=== PATIENT | male | born 1955 | race African-American/Black ===

== ENCOUNTER 2016-07-01 16:26 | Emergency (ER) | payer OTHER ==
--- NOTE | 2016-07-01 16:47 | PDOC ---
History of Present Illness - General History Source: Patient, Family (, [id number]) Exam Limitations: No Limitations - History of Present Illness Initial Comments: 07/01/16 17:21 The patient is a 61 year old male, with no significant past medical history, who presents to the emergency department sent from an urgent care for evaluation secondary to abnormal lab work. Last week, the patient reports feeling weak with chills and a couple episodes of diarrhea. At the request of family members, the patient finally visited an urgent care for those symptoms earlier today. While at the urgent care, the patient had a chest x-ray, lab work and a flu swab done. The chest x-ray revealed no acute findings and the flu swab was negative but the lab work revealed an elevated potassium of 5.9. The urgent care advised the patient to visit an ED for further evaluation. Currently in the ED, the patient states that the chills and diarrhea had resolved but he reports feeling slightly weak and dehydrated. The patient denies chest pain or shortness of breath. The patient denies fever, chills, headache, cough, nausea, vomiting, diarrhea or abdominal pain. The patients and [id number] are at the bedside. Allergies: None reported. Past Surgical History: Back Surgery, Achilles Tendon Repair. Social History: Non smoker. Denies alcohol or drug use. <Karmen Munoz - Last Filed: 07/01/16 17:21> - General History Source: Patient, Old Records Exam Limitations: No Limitations <Ernestina Minor - Last Filed: 07/01/16 18:26> - General Chief Complaint: Revisit, Lab Variance Stated Complaint: HIGH POTASSIUM 5.9 Time Seen by Provider: 07/01/16 16:30 Past History <Karmen Munoz - Last Filed: 07/01/16 17:21> - Psycho/Social/Smoking Cessation Hx Anxiety: No Suicidal Ideation: No Smoking Status: No Smoking History: Never smoked Have you smoked in the past 12 months: No Number of Cigarettes Smoked Daily: 0 Hx Alcohol Use: No Drug/Substance Use Hx: No Substance Use Type: None <Ernestina Minor - Last Filed: 07/01/16 18:26> - Past Medical History Allergies/Adverse Reactions: Allergies Allergy/AdvReac Type Severity Reaction Status Date / Time No Known Allergies Allergy Verified 07/01/16 16:29 Home Medications: Ambulatory Orders NK [No Known Home Medication] 07/01/16 Review of Systems - Review of Systems Able to Perform ROS?: Yes Comments:: 07/01/16 17:21 GENERAL/CONSTITUTIONAL: +Weakness. No fever or chills. HEAD, EYES, EARS, NOSE AND THROAT: No change in vision. No ear pain or discharge. No sore throat. CARDIOVASCULAR: No chest pain or shortness of breath. RESPIRATORY: No cough, wheezing, or hemoptysis. GASTROINTESTINAL: No nausea, vomiting, diarrhea or constipation. GENITOURINARY: No dysuria, frequency, or change in urination. MUSCULOSKELETAL: No joint or muscle swelling or pain. No neck or back pain. SKIN: No rash. NEUROLOGIC: No headache, vertigo, loss of consciousness, or change in strength/ sensation. ENDOCRINE: No increased thirst. No abnormal weight change. HEMATOLOGIC/LYMPHATIC: No anemia, easy bleeding, or history of blood clots. ALLERGIC/IMMUNOLOGIC: No hives or skin allergy. <Karmen Munoz - Last Filed: 07/01/16 17:21> *Physical Exam - Vital Signs Last Vital Signs Temp Pulse Resp BP Pulse Ox 98.9 F 67 16 141/89 99 07/01/16 16:29 07/01/16 16:29 07/01/16 16:29 07/01/16 16:29 07/01/16 16:29 - Physical Exam Comments: 07/01/16 16:51 GENERAL: Awake, alert, and fully oriented, in no acute distress. HEAD: No signs of trauma. EYES: PERRLA, EOMI, sclera anicteric, conjunctiva clear. ENT: Auricles normal inspection, hearing grossly normal, nares patent, oropharynx clear without exudates. Moist mucosa. NECK: Normal ROM, supple, no lymphadenopathy, JVD, or masses. LUNGS: Breath sounds equal, clear to auscultation bilaterally. No wheezes, and no crackles. HEART: Regular rate and rhythm, normal S1 and S2, no murmurs, rubs or gallops. ABDOMEN: Soft, nontender, normoactive bowel sounds. No guarding, no rebound. No masses. EXTREMITIES: Normal range of motion, no edema. No clubbing or cyanosis. No cords , erythema, or tenderness. NEUROLOGICAL: Cranial nerves II through XII intact. Normal speech, normal gait. SKIN: Warm, dry, normal turgor, no rashes or lesions noted. <Karmen Munoz - Last Filed: 07/01/16 17:21> ED Treatment Course - LABORATORY CBC & Chemistry Diagram: 07/01/16 17:20 07/01/16 17:20 <Ernestina Minor - Last Filed: 07/01/16 18:26> Medical Decision Making - Medical Decision Making 07/01/16 16:48 61-year-old male with no significant past medical history refer to the emergency department from urgent care for evaluation of elevated potassium of 5.9; however the patient has had one week history of chills and fever at home. Differential diagnosis includes but is not limited to: Acute kidney injury, hyperkalemia, dehydration, electrolyte abnormality, toxic/metabolic derangement. Plan: 1. Repeat labs and EKG 2. IV fluids for hydration 3. Urine analysis 4. Will not repeat the chest x-ray as it was negative at urgent care. Also influenza swab at urgent care was negative so that will not be repeated either. 5. Observe and reevaluate 07/01/16 18:23 Addendum: The labs were reviewed and are noted in the EMR. EKG is negative for acute ST segment changes or any changes consistent with hyperkalemia. There is only a first-degree AV block. The repeat labs show a potassium of 5 and a creatinine of 1.4. The patient is feeling improved. I will not do any interventions for the potassium of 5.0 as this is within the normal range. I've advised the patient to follow-up with his primary care physician within one week and to cut down on the amount of are and shoes that he drinks. I've also advised the patient to return to the emergency department if his symptoms persist, worsen, or new symptoms arise. <Ernestina Minor - Last Filed: 07/01/16 18:26> *DC/Admit/Observation/Transfer - Attestations Scribe Attestion: 07/01/16 16:50 Documentation prepared by Karmen Munoz, acting as senior medical director for Ernestina Minor MD. <Karmen Munoz - Last Filed: 07/01/16 17:21> - Discharge Dispostion Admit: No - Attestations Physician Attestion: 07/01/16 16:50 I, Dr. Ernestina Minor, attest that the scribes documentation that appears above has been prepared under my direction and personally reviewed by me in its entirety. I confirmed that the note above accurately reflects all work, treatment, procedures, and medical decision-making performed by me. <Ernestina Minor - Last Filed: 07/01/16 18:26> Diagnosis at time of Disposition: Dehydration, Viral infection - Discharge Dispostion Disposition: HOME Condition at time of disposition: Stable - Patient Instructions Printed Discharge Instructions: DI for Viral Syndrome Additional Instructions: You likely have a viral syndrome that causes you to be dehydrated. Your potassium level was 5.0 in the emergency department today. Your creatinine is 1.4 todaythis is elevated from what the normal level should be. Please follow- up with primary care physician within one week and return to the emergency department if your symptoms persist, worsen, or new symptoms arise. Refrain from drinking orange juice and eating foods like bananas that are high in potassium.
[2016-07-01] MEDS ORDERED: SODIUM CHLORIDE 1,000 ML IV STA (16:48)
[2016-07-01 17:03] VITALS: BP 141/89; PULSE 67; TEMP 98.9; BMI 32.3
[2016-07-01 17:37] LABS: PH,URINE 5.5 (4.5-8); URINE APPEARANCE Clear; URINE BILIRUBIN Negative (NEGATIVE); URINE BLOOD Trace-intact (NEGATIVE); URINE COLOR YELLOW; URINE GLUCOSE (UA) Negative (NEGATIVE); URINE KETONE Negative (NEGATIVE); URINE LEUK ESTERASE Negative (NEGATIVE); URINE NITRITE Negative (NEGATIVE); URINE PROTEIN Negative (NEGATIVE); URINE UROBILINOGEN 0.2 E.U/dl (0.2-1.0)
[2016-07-01 17:41] LABS: EOSINOPHIL 1.8 % (0-4.5); MCH 28.3 pg (25.7-33.7); MCHC 33.7 g/dl (32.0-35.9); MEAN CELL VOLUME 83.9 fl (80-96); MEAN PLT VOLUME 9.5 fl (7.5-11.1); NEUTROPHILS 62.7 % (42.8-82.8); PLATELET COUNT 346 K/MM3 (134-434); RDW 12.5 % (11.9-15.9); WHITE BLOOD COUNT 12.5 K/mm3 (4.0-10.0)
[2016-07-01 17:56] LABS: CALCIUM 9.5 mg/dl (8.4-10.2); CREATININE 1.4 mg/dl (0.6-1.3); MAGNESIUM 2.1 mg/dL (1.8-2.4)
--- NOTE | 2016-07-02 13:40 | EKG ---
Test Reason : Blood Pressure : / mmHG Vent. Rate : 062 BPM Atrial Rate : 062 BPM P-R Int : 238 ms QRS Dur : 092 ms QT Int : 414 ms P-R-T Axes : 053 -16 009 degrees QTc Int : 420 ms SINUS RHYTHM WITH 1ST DEGREE A-V BLOCK OTHERWISE NORMAL ECG WHEN COMPARED WITH ECG OF 13-MAY-2012 12:10, NO SIGNIFICANT CHANGE WAS FOUND Confirmed by SHIMA MONTGOMERY, AMIRA ([id number]) on 07/02/2016 1:39:46 PM Referred By: Beulah RICHEY Confirmed By:AMIRA RONQUILLO MD
== END 2016-07-01 18:50 | disposition home or self-care (01) ==
LOC: FER 16:26
PROC: 3E0337Z Introduction of Electrolytic and Water Balance Substance into Peripheral Vein, Percutaneous Approach (ICD-10-PCS; principal; 2016-07-01)
DX: B34.9 Viral infection, unspecified (principal); E86.0 Dehydration
CPT/HCPCS: 36415; 80048; 81003; 83605; 83735; 84100; 85025; 93005; 96360; 99282-25

== ENCOUNTER 2017-05-02 12:03 | Emergency (ER) | payer OTHER ==
[2017-05-02] MEDS ORDERED: KETOROLAC TROMETHAMINE 30 MG/1 ML VIAL IM ONE (13:04)
--- NOTE | 2017-05-02 13:04 | PDOC ---
History of Present Illness - General Chief Complaint: Back Pain Stated Complaint: LOWER BACK PAIN Time Seen by Provider: 05/02/17 12:14 - History of Present Illness Initial Comments: 05/02/17 13:22 61 years old no significant past medical history past surgical history significant for laminectomy several years ago presents to the emergency department with atraumatic low back discomfort right paraspinal worse with raising his left leg. No fever no weakness no numbness no weight loss no recent injections no history of IV drug use pain is moderate intermittent worse with raising his left leg alleviated somewhat by rest Past History - Past Medical History Allergies/Adverse Reactions: Allergies Allergy/AdvReac Type Severity Reaction Status Date / Time No Known Allergies Allergy Verified 05/02/17 12:04 Home Medications: Ambulatory Orders Diazepam [Valium] 5 mg PO BID #4 tablet MDD 2 05/02/17 - Suicide/Smoking/Psychosocial Hx Smoking Status: No Smoking History: Never smoked Have you smoked in the past 12 months: No Number of Cigarettes Smoked Daily: 0 Hx Alcohol Use: No Drug/Substance Use Hx: No Substance Use Type: None Review of Systems - Review of Systems Comments:: 05/02/17 13:22 ROS: A complete review of 10 out of 10 review of systems is taken and is negative apart from what is previously mentioned below and in the HPI. *Physical Exam - Physical Exam Comments: 05/02/17 13:23 Vitals: Triage Vital signs reviewed General Appearance: no acute distress, well nourished well developed, Head: Atraumatic, Neck: Supple;No Nucal rigidity Chest Wall: Nontender Cardiac: Regular rate and rhythym, no murmurs, no rubs, no gallops, Lungs: Clear to auscultation bilateral, good air movement bilaterally, Abdomen: Soft, non distended, normal bowel sounds, non tender to palpation Extremities: Full range of motion to all extremities, no cyanosis, clubbing, or edema Musculoskeletal: No midline tenderness no significant paraspinal tenderness. Pain with left straight leg raise. Skin: Warm and dry, no rashes or lesions, no rash, no petechiae Psych: normal mood, normal affect Medical Decision Making - Medical Decision Making 05/02/17 13:25 61 years old with low back discomfort right sided worse when raising left leg differential diagnosis includes exacerbation of previous back injury versus spinal stenosis Status post total patient feels better Ambulate comfortably around the emergency department No red flags in patient's back pain history no fever no waitlist on bowel or bladder incontinence He will follow-up with his orthopedic surgeon next week. We will try a short course of naproxen and Valium. He'll return to the emergency department for any weakness numbness bowel bladder incontinence or for any concerns Findings, the need for follow-up, strict return instructions discussed with patient. *DC/Admit/Observation/Transfer Diagnosis at time of Disposition: Low back pain Qualifiers: Chronicity: acute Back pain laterality: right Sciatica presence: unspecified whether sciatica present Qualified Code(s): M54.5 - Low back pain - Discharge Dispostion Disposition: HOME Condition at time of disposition: Improved Admit: No - Prescriptions Prescriptions: Diazepam [Valium] 5 mg PO BID #4 tablet MDD 2 - Referrals - Patient Instructions Printed Discharge Instructions: Low Back Pain Additional Instructions: Take 2 tabs [id number] Aleve twice a day for the next 5 days. Valium at night only as prescribed for muscle spasm. Do not drive on this medication. Follow-up with your orthopedist/spine surgeon next week. Return to the emergency department for any weakness numbness bowel or bladder incontinence severe worsening symptoms or for any concerns. - Post Discharge Activity
[2017-05-02 13:06] VITALS: BP 158/97; PULSE 60; TEMP 97.7; BMI 30.5
[2017-05-02] MEDS ORDERED: KETOROLAC TROMETHAMINE 30 MG/1 ML VIAL ONE (13:07)
== END 2017-05-02 13:31 | disposition home or self-care (01) ==
LOC: FER 12:03
PROC: 3E0233Z Introduction of Anti-inflammatory into Muscle, Percutaneous Approach (ICD-10-PCS; principal; 2017-05-02)
DX: M54.5 Low back pain (principal)
CPT/HCPCS: 96372; 99282-25

== ENCOUNTER 2017-05-15 02:13 | Emergency (ER) | payer OTHER ==
[2017-05-15 02:17] VITALS: BP 133/85; PULSE 56; TEMP 98.5; BMI 29.8
--- NOTE | 2017-05-15 03:31 | PDOC ---
History of Present Illness - General Chief Complaint: Cold Symptoms Stated Complaint: COLD SYMPTOMS Time Seen by Provider: 05/15/17 02:22 Past History - Past Medical History Allergies/Adverse Reactions: Allergies Allergy/AdvReac Type Severity Reaction Status Date / Time No Known Allergies Allergy Verified 05/02/17 12:04 Home Medications: Ambulatory Orders Promethazine HCl [Phenergan Liquid -] 5 ml PO QID PRN #60 ml 05/15/17 COPD: No - Suicide/Smoking/Psychosocial Hx Smoking Status: No Smoking History: Never smoked Have you smoked in the past 12 months: No Number of Cigarettes Smoked Daily: 0 Hx Alcohol Use: No Drug/Substance Use Hx: No Substance Use Type: None *Physical Exam - Vital Signs Last Vital Signs Temp Pulse Resp BP Pulse Ox 98.5 F 56 L 18 133/85 99 05/15/17 02:15 05/15/17 02:15 05/15/17 02:15 05/15/17 02:15 05/15/17 02:15 *DC/Admit/Observation/Transfer Diagnosis at time of Disposition: Viral syndrome - Discharge Dispostion Disposition: HOME Condition at time of disposition: Stable - Prescriptions Prescriptions: Promethazine HCl [Phenergan Liquid -] 5 ml PO QID PRN #60 ml PRN Reason: Cough - Referrals - Patient Instructions Printed Discharge Instructions: DI for Viral Syndrome Additional Instructions: Continue to drink plenty of fluids and rest as needed Phenergan 1 teaspoon up to 4 times a day as needed for cough Return if you have severe cough or high fever Follow-up with your general medical doctor within one week - Post Discharge Activity
== END 2017-05-15 03:50 | disposition home or self-care (01) ==
LOC: FER 02:13
DX: B94.9 Sequelae of unspecified infectious and parasitic disease (principal)
CPT/HCPCS: 99281-25

== ENCOUNTER 2020-11-25 18:45 | Emergency (ER) | payer BC, OTHER ==
[2020-11-25 19:26] VITALS: TEMP 97.9
[2020-11-28 13:08] LABS: SARS-CoV-2 NAA Not Detected (Not Detected)
== END 2020-11-25 19:30 | disposition home or self-care (01) ==
LOC: JVIRT 18:45
DX: Z11.52 Encounter for screening for COVID-19 (principal)
CPT/HCPCS: C9803; Q3014-GT; U0003; U0005